=== PATIENT | female | born 1995 | race Caucasian/White ===

== ENCOUNTER → 2022-11-28 | Outpatient (CLI) | payer OTHER ==
[2022-11-28 18:05] LABS: HCT 39.2 % (37.2-46.3); HGB 12.8 g/dL (12.0-15.0); MCH 31.8 pg (27.0-32.0); MCHC 32.7 g/dL (32.0-37.0); MCV 97.3 fL (80.0-97.0); NRBC Per 100 WBC 0 /100 WBCS (0.0-0.0); Platelet Count 167 X 10*3/uL (140-440); RBC 4.03 X 10*6/uL (4.10-5.20); RDW 12.5 % (11.5-14.5); WBC 12.51 X 10*3/uL (4.50-10.00)
== END | disposition home or self-care (01) ==
LOC: LABWHC1 10:41
PROVIDERS: ATTEND Obstetrics & Gynecology
DX: Z34.82 Encounter for supervision of other normal pregnancy, second trimester (principal); Z3A.00 Weeks of gestation of pregnancy not specified
CPT/HCPCS: 36415; 82950; 85027

== ENCOUNTER 2023-02-27 06:00 | Inpatient (IN) | payer OTHER ==
[2023-03-02] MEDS ORDERED: BUTORPHANOL 2 MG/ML 1 ML VIAL IV PRN (16:10)
[2023-03-02] MEDS ORDERED: DINOPROSTONE 10 MG INSERT.ER VAGINAL ONE (16:30)
[2023-03-03] MEDS ORDERED: OXYTOCIN 10 UNIT/ML 1 ML VIAL IM PRN (05:56)
[2023-03-03] MEDS ORDERED: LIDOCAINE 0.5% (PF) 5 MG/ML (50 ML SDV) SQ PRN (05:56)
[2023-03-03] MEDS ORDERED: CARBOPROST TROMETHAMINE 250 MCG/ML 1 ML AMP IM PRN (05:56)
[2023-03-03] MEDS ORDERED: METHYLERGONOVINE 0.2 MG/ML 1 ML AMP IM PRN (05:56)
[2023-03-03] MEDS ORDERED: TRANEXAMIC ACID IN NACL,ISO-OS 1,000 MG in EMPTY BAG 1 BAG IV PRN (05:56)
[2023-03-03] MEDS ORDERED: TERBUTALINE 1 MG/ML VIAL SQ PRN (05:56)
[2023-03-03] MEDS ORDERED: miSOPROStoL 200 MCG TAB PO PRN (05:56)
[2023-03-03] MEDS ORDERED: OXYTOCIN 30 UNITS/500 ML NS 30 UNIT in SALINE 1 500ML.BAG IV SCH ×2 (06:00→19:45)
[2023-03-03] MEDS: LACTATED RINGERS 1,000 ML IV SCH ×3 (06:06→20:44)
[2023-03-03 06:37] LABS: Basophils % (A) 0 %; Eosinophils # (A) 0.1 k/uL (0-0.7); Eosinophils % (A) 2 %; HCT 37.1 % (34.0-46.0); HGB 12.5 gm/dL (11.4-16.0); Lymphocytes # (A) 1.6 k/uL (1.0-4.8); Lymphocytes % (A) 20 %; MCH 31.5 pg (25.0-35.0); MCHC 33.8 g/dL (31.0-37.0); MCV 93.4 fL (80.0-100.0); Mean Platelet Volume 11.2; Monocytes # (A) 0.4 k/uL (0-1.0); Monocytes % (A) 5 %; Neutrophils # (A) 5.8 k/uL (1.3-7.7); Neutrophils % (A) 71 %; Platelet Count 123 k/uL (150-450); RBC 3.97 m/uL (3.80-5.40); RDW 13.6 % (11.5-15.5); WBC 8.1 k/uL (3.8-10.6)
[2023-03-03 07:11] LABS: Amphetamine Screen,Urine Not Detected (NotDetected); Barbiturate Screen,Urine Not Detected (NotDetected); Benzodiazepines Screen,Urine Not Detected (NotDetected); Cocaine Screen,Urine Not Detected (NotDetected); Methadone Screen, Urine Not Detected (NotDetected); Opiate Screen,Urine Not Detected (NotDetected); Oxycodone Screen, Urine Not Detected (NotDetected); Phencyclidine Screen,Urine Not Detected (NotDetected); Tricyclic Antidepressant,Urine Not Detected (NotDetected); Urn Cannabinoid Scrn Not Detected (NotDetected)
[2023-03-03] MEDS ORDERED: ROPIVACAINE 5 MG/ML 20 ML AMPULE ONE (10:51)
[2023-03-03] MEDS ORDERED: fentaNYL (PF) 50 MCG/ML 5 ML AMP ONE (10:51)
[2023-03-03] MEDS ORDERED: SODIUM CHLORIDE 0.9% 100 ML BAG ONE (10:51)
[2023-03-03] MEDS ORDERED: ROPIVACAINE 225 MG, fentaNYL (PF). 450 MCG in SODIUM CHLORIDE 0.9% 171 ML EPIDURAL ONE (12:26)
--- NOTE | 2023-03-03 17:07 | P.HPOB ---
History of Present Illness H&P Date: 03/02/23 Chief Complaint: induction of labor 27 year old presents at 39 weeks for 2 stage induction of labor due to IUGR. Her cervix is closed, thick, -3 station. She is not zoila. heart tones 135 with moderate variability and reactive. Review of Systems All systems: negative Constitutional: Denies chills, Denies fever Eyes: denies blurred vision, denies pain Ears, nose, mouth and throat: Denies headache, Denies sore throat Cardiovascular: Denies chest pain, Denies shortness of breath Respiratory: Denies cough Gastrointestinal: Denies abdominal pain, Denies diarrhea, Denies nausea, Denies vomiting Genitourinary: Denies dysuria, Denies hematuria Musculoskeletal: Denies myalgias Integumentary: Denies pruritus, Denies rash Neurological: Denies numbness, Denies weakness Psychiatric: Denies anxiety, Denies depression Endocrine: Denies fatigue, Denies weight change Past Medical History Past Medical History: No Reported History History of Any Multi-Drug Resistant Organisms: None Reported Past Surgical History: No Surgical Hx Reported Past Anesthesia/Blood Transfusion Reactions: No Reported Reaction Past Psychological History: No Psychological Hx Reported Smoking Status: Former smoker Past Alcohol Use History: None Reported Past Drug Use History: None Reported Additional Drug Use History / Comment(s): thc use stopped when fond out she was preg - Past Family History Mother Family Medical History: No Reported History Medications and Allergies Home Medications Medication Instructions Recorded Confirmed Type Vit No.179/Iron/Folic 1 each PO DAILY 03/02/23 03/02/23 History [ Tablet] Sertraline [Zoloft] 50 mg PO DAILY 03/02/23 03/02/23 History Allergies Allergy/AdvReac Type Severity Reaction Status Date / Time No Known Allergies Allergy Verified 03/02/23 16:10 Exam Osteopathic Statement: *. No significant issues noted on an osteopathic structural exam other than those noted in the History and Physical/Consult. Intake and Output 03/03/23 03/03/23 03/03/23 06:59 14:59 22:59 Other: # Voids 2 Heart: Regular rate and rhythm Lungs: Clear to auscultation bilaterally Abdomen: Soft, nontender Extremities: Negative Homans sign Results Result Diagrams: 03/03/23 06:24 Abnormal Lab Results - Last 24 Hours (Table) 03/03/23 Range/Units 06:24 Plt Count 123 L (150-450) k/uL Assessment and Plan (1) Intrauterine growth restriction (IUGR) affecting care of mother Current Visit: Yes Status: Acute Code(s): O36.5990 - MATERN CARE FOR OTH OR SUSP POOR FETL GRTH, UNSP TRI, UNSP SNOMED Code(s): 902067865 (2) 39 weeks gestation of Current Visit: Yes Status: Acute Code(s): Z3A.39 - 39 WEEKS GESTATION OF SNOMED Code(s): 05741675 Plan: 1. Cervidil tonight and then Pitocin in the morning with amniotomy of possible. 2. Anticipate normal vaginal delivery
[2023-03-03] MEDS ORDERED: SIMETHICONE 80 MG CHEWABLE PO PRN (19:33)
[2023-03-03] MEDS ORDERED: ZOLPIDEM 5 MG TAB PO PRN (19:33)
[2023-03-03] MEDS ORDERED: HYDROCORTISONE 2.5% RECTAL CREAM 30 GM TUBE RECTAL PRN (19:33)
[2023-03-03] MEDS ORDERED: diphenhydrAMINE 50 MG CAP PO PRN (19:33)
[2023-03-03] MEDS ORDERED: diphenhydrAMINE 50 MG/ML 1 ML VIAL IVP PRN ×2 (19:33)
[2023-03-03] MEDS ORDERED: BENZOCAINE/MENTHOL SPRAY 1 GM/SPRAY AEROSOL TOPICAL PRN (19:33)
[2023-03-03] MEDS ORDERED: diphenhydrAMINE 25 MG CAP PO PRN (19:33)
[2023-03-03] MEDS ORDERED: LANOLIN CREAM 5 GM TUBE TOPICAL PRN (19:33)
--- NOTE | 2023-03-03 19:33 | P.PROBDLV ---
Vaginal Delivery Note - . Vaginal Delivery Note: 27 year old presents at 39 weeks for 2 stage induction of labor due to IUGR. Her cervix is closed, thick, -3 station. She is not zoila. heart tones 135 with moderate variability and reactive. cervidil was placed. 12 hours later, patient was dilated to 1/70/-2. Amniotomy performed at 713 am and clear fluid noted. Pitocin was also started. When the patient was uncomfortable she did get an epidural. The heart tones were mostly category 1 throughout the day there were some areas of category 2 heart tones were she had variable decelerations down to the 90s with good return to baseline mirroring contractions. The Pitocin was shut off a few times, position changes were done, oxygen was applied and IV fluids. The baby responded well to these interventions and we were able to continue with induction of labor. When the patient was completely dilated she was also +1 station. She pushed a few times and pushed baby down to +2 station. The heart tones at this time went down to the 70s and were not returning to baseline. I informed the patient of the risks and benefits of the vacuum delivery. After informed consent was obtained I verified position of the baby, during the bladder, and placed the vacuum. With 1 pull and no pop offs 's head delivered HONG. Anterior shoulder delivered gentle downward guidance followed by posterior shoulder and rest of body. Nose and mouth bulb suctioned, cord clamped and cut, placed mother's abdomen. Apgars 8, 9, weight 5 lbs. 4 oz. Placenta delivered spontaneously, intact with three-vessel cord at 1909. Vagina, cervix, and perineum were inspected. A left sulcal tear and a left labial tear were repaired with 3-0 Vicryl. Estimated blood loss 150 mL. Mother and baby in stable condition.
[2023-03-03] MEDS: SENNOSIDES-DOCUSATE SODIUM 1 EACH TAB PO SCH (20:54)
[2023-03-03] MEDS: IBUPROFEN 600 MG TAB PO PRN (20:55)
[2023-03-03] MEDS: SERTRALINE 50 MG TAB PO SCH (20:58)
[2023-03-04] MEDS: IBUPROFEN 600 MG TAB PO PRN ×3 (04:04→19:27)
[2023-03-04 07:41] LABS: Basophils % (A) 0 %; Eosinophils # (A) 0.1 k/uL (0-0.7); Eosinophils % (A) 0 %; HCT 32.2 % (34.0-46.0); HGB 11.2 gm/dL (11.4-16.0); Lymphocytes # (A) 1.1 k/uL (1.0-4.8); Lymphocytes % (A) 10 %; MCH 31.3 pg (25.0-35.0); MCHC 34.8 g/dL (31.0-37.0); Mean Platelet Volume 11.7; Monocytes # (A) 0.6 k/uL (0-1.0); Monocytes % (A) 5 %; Neutrophils # (A) 9.8 k/uL (1.3-7.7); Neutrophils % (A) 83 %; RBC 3.57 m/uL (3.80-5.40); RDW 13.9 % (11.5-15.5); WBC 11.7 k/uL (3.8-10.6)
--- NOTE | 2023-03-04 08:15 | P.PNOBGVD ---
Subjective - Subjective Principal diagnosis: S/P NVD PPD #1 Interval history: Patient Seen and examined. Denies nausea, vomiting, chest pain, shortness of breath or calf pain. Patient reports: Reports appetite normal, Reports voiding normally, Reports pain well controlled, Reports ambulating normally : doing well Objective - Latest Vital Signs Latest vital signs: Vital Signs Temp Pulse Resp BP Pulse Ox 03/04/23 07:58 98 F 72 18 111/62 98 03/04/23 04:00 97.9 F 74 16 128/74 98 03/03/23 23:30 98.1 F 83 16 107/66 03/03/23 21:15 98.1 F 82 15 118/93 03/03/23 20:45 96 15 134/90 03/03/23 20:15 98.3 F 82 16 128/70 03/03/23 20:00 98.3 F 88 15 121/67 03/03/23 19:45 97.1 F L 93 15 147/79 03/03/23 19:30 98.1 F 92 16 134/70 03/03/23 19:15 93 15 141/69 Intake and Output 03/03/23 03/04/23 03/04/23 22:59 06:59 14:59 Intake Total 480 Output Total 50 Balance 430 Intake: Oral 480 Output: Output, Quantitative 50 Blood Loss Other: # Voids 1 1 - Exam Lungs: bilateral: normal Chest: Normal S1, Normal S2 Extremities: Present: normal Abdomen: Present: normal appearance, soft Uterus: Present: normal, firm - Labs Labs: Abnormal Lab Results - Last 24 Hours (Table) 03/04/23 Range/Units 07:06 WBC 11.7 H (3.8-10.6) k/uL RBC 3.57 L (3.80-5.40) m/uL Hgb 11.2 L (11.4-16.0) gm/dL Hct 32.2 L (34.0-46.0) % Assessment and Plan (1) Intrauterine growth restriction (IUGR) affecting care of mother Current Visit: Yes Status: Resolved Code(s): O36.5990 - MATERN CARE FOR OTH OR SUSP POOR FETL GRTH, UNSP TRI, UNSP SNOMED Code(s): 274839210 (2) 39 weeks gestation of Current Visit: Yes Status: Resolved Code(s): Z3A.39 - 39 WEEKS GESTATION OF SNOMED Code(s): 26575511 (3) Status post normal vaginal delivery Current Visit: Yes Status: Acute Code(s): [id number] - SNOMED Code(s): 176412157 Plan: 1. continue pp care. 2. consult
[2023-03-04] MEDS: SENNOSIDES-DOCUSATE SODIUM 1 EACH TAB PO SCH ×2 (08:30→19:27)
[2023-03-04 08:39] LABS: Platelet Count 97 k/uL (150-450)
[2023-03-04] MEDS: ACETAMINOPHEN TAB 325 MG TAB PO PRN (15:12)
[2023-03-04] MEDS: LACTATED RINGERS 1,000 ML IV SCH ×2 (17:29→17:30)
[2023-03-04] MEDS: SERTRALINE 50 MG TAB PO SCH (21:12)
[2023-03-05] MEDS: ACETAMINOPHEN TAB 325 MG TAB PO PRN (00:01)
[2023-03-05 00:03] VITALS: RESP 16
[2023-03-05] MEDS: IBUPROFEN 600 MG TAB PO PRN ×2 (04:08→11:32)
[2023-03-05 07:28] VITALS: BP 131/73; PULSE 60; TEMP 98
--- NOTE | 2023-03-05 08:01 | P.DS ---
Providers Date of admission: 03/02/23 16:00 Expected date of discharge: 03/05/23 Attending physician: Morena Lo Primary care physician: Stated None - Discharge Diagnosis(es) (1) Intrauterine growth restriction (IUGR) affecting care of mother Current Visit: Yes Status: Resolved (2) 39 weeks gestation of Current Visit: Yes Status: Resolved (3) Status post normal vaginal delivery Current Visit: Yes Status: Acute Hospital Course: Patient presented for induction of labor. She underwent a vacuum-assisted vaginal delivery. Post course has been uneventful. Denies nausea, vomiting, chest pain, shortness of breath or calf pain. Patient will be discharged home day #1 in stable condition to follow-up with me in 6 weeks. Plan - Discharge Summary New Discharge Prescriptions: New Ibuprofen [Motrin] 600 mg PO Q6HR PRN #30 tab PRN Reason: Mild Pain (Scale 1 To 3) No Action Sertraline [Zoloft] 50 mg PO DAILY Vit No.179/Iron/Folic [ Tablet] 1 each PO DAILY Discharge Medication List Vit No.179/Iron/Folic [ Tablet] 1 each PO DAILY 03/02/23 [Hist ory] Sertraline [Zoloft] 50 mg PO DAILY 03/02/23 [History] Ibuprofen [Motrin] 600 mg PO Q6HR PRN #30 tab 03/05/23 [Rx] Follow up Appointment(s)/Referral(s): Morena Lo DO [Doctor of Osteopathic Medicine] - 04/14/23 10:45 am Discharge Disposition: HOME SELF-CARE
[2023-03-05] MEDS: SENNOSIDES-DOCUSATE SODIUM 1 EACH TAB PO SCH (12:33)
== END 2023-03-05 12:05 | disposition home or self-care (01) | DRG 807 ==
LOC: 4FBP 03-02 16:00
PROVIDERS: ADMIT Obstetrics & Gynecology; ATTEND Obstetrics & Gynecology
PROC: 3E0P7VZ Introduction of Hormone into Female Reproductive, Via Natural or Artificial Opening (ICD-10-PCS; 2023-03-02)
PROC: 10D07Z6 Extraction of Products of Conception, Vacuum, Via Natural or Artificial Opening (ICD-10-PCS; principal; 2023-03-03)
PROC: 3E033VJ Introduction of Other Hormone into Peripheral Vein, Percutaneous Approach (ICD-10-PCS; 2023-03-03)
PROC: 3E0DXGC Introduction of Other Therapeutic Substance into Mouth and Pharynx, External Approach (ICD-10-PCS; 2023-03-03)
PROC: 10907ZC Drainage of Amniotic Fluid, Therapeutic from Products of Conception, Via Natural or Artificial Opening (ICD-10-PCS; 2023-03-03)
PROC: 0UQMXZZ Repair Vulva, External Approach (ICD-10-PCS; 2023-03-03)
PROC: 0UQG7ZZ Repair Vagina, Via Natural or Artificial Opening (ICD-10-PCS; 2023-03-03)
DX: O36.5930 Maternal care for other known or suspected poor fetal growth, third trimester, not applicable or unspecified (principal); Z37.0 Single live birth; F12.91 Cannabis use, unspecified, in remission; Z3A.39 39 weeks gestation of pregnancy; Z28.310 Unvaccinated for COVID-19; O70.0 First degree perineal laceration during delivery; Z79.899 Other long term (current) drug therapy; Z87.891 Personal history of nicotine dependence
CPT/HCPCS: 80306; 85025; 86850; 86900; 86901; 88307